=== PATIENT | female | born 1960 | race American Indian/Alaskan Native ===

== ENCOUNTER 2016-12-31 08:37 | Outpatient (CLI) | payer MEDICAID ==
--- NOTE | 2016-12-31 09:21 | XRay Report ---
LEFT HIP, 2 views: History: Left hip pain. The bony architecture is intact without evidence of fracture or dislocation. No significant soft tissue abnormality is seen. IMPRESSION: Normal left hip.
== END 2016-12-31 08:38 | disposition home or self-care (01) ==
LOC: XRAY 08:37
DX: M25.552 Pain in left hip (principal); M51.16 Intervertebral disc disorders with radiculopathy, lumbar region

== ENCOUNTER 2017-02-23 13:35 | Emergency (ER) | payer MEDICAID ==
[2017-02-23] MEDS: PERCOCET 5/325 PO ONE (16:57)
[2017-02-23] MEDS: TORADOL IM ONE (16:57)
[2017-02-23 17:03] LABS: Eosinophils % (Auto) 3.6 % (0.0-4.3); Hematocrit 43.3 % (30.3-42.9); Hemoglobin 14.1 gm/dl (10.1-14.3); Mean Corpuscular HGB Conc 33 % (30-34); Mean Corpuscular Hemoglobin 31 pg (28-32); Mean Corpuscular Volume 95 fl (79-97); Platelet Count 281 K/mm3 (140-440); Red Blood Count 4.58 M/mm3 (3.65-5.03); Red Cell Distribution Width 14.7 % (13.2-15.2); White Blood Count 7.8 K/mm3 (4.5-11.0)
[2017-02-23] MEDS: CALAN SR PO ONE (17:07)
--- NOTE | 2017-02-23 17:33 | Emergency Department Report ---
ED Lower Extremity HPI - General Chief Complaint: Extremity Injury, Lower Stated Complaint: RT KNEE AND RT FOOT Time Seen by Provider: 02/23/17 15:50 Source: patient Mode of arrival: Wheelchair Limitations: No Limitations - History of Present Illness Initial Comments: 56-year-old female with a past medical history of CVA, diabetes, hypertension, hyperlipidemia, back surgery, right knee and bilateral foot surgery presents to the hospital complains of pain and swelling to right leg after fall. She fell 4 days ago. She states that she has chronic problems of her right knee and on occasionally gives out on her period 4 days ago her leg gave out causing her to fall. She has had right knee and right foot pain since with some worsening swelling. Patient also presents with elevated blood pressure and states she has been compliant with her medications. She denies headache, chest pain, shortness of breath. - Related Data Home Medications Medication Instructions Recorded Confirmed Last Taken Gemfibrozil [Lopid] 600 mg PO DAILY 06/26/13 06/26/13 06/26/13 Metoprolol [Lopressor TAB] 100 mg PO BID 06/26/13 06/26/13 06/26/13 Verapamil HCl [Verapamil ER] 240 mg PO BID 06/26/13 06/26/13 06/26/13 cloNIDine [Catapres] 0.1 mg PO TID 06/26/13 06/26/13 06/26/13 Previous Rx's Medication Instructions Recorded Last Taken Type Cyclobenzaprine [Flexeril 10 MG 10 mg PO TID #12 tab 06/26/13 Unknown Rx TAB] Hydrocodone Bit/Acetaminophen 1 each PO Q6H PRN #12 tablet 06/26/13 Unknown Rx [Lortab 5-500 Tablet] Ondansetron [Zofran] 4 mg PO Q6HR PRN #20 tablet 12/23/14 Unknown Rx Acetaminophen/Codeine [Tylenol #3] 1 tab PO Q6H PRN #20 tab 03/06/15 Unknown Rx Cyclobenzaprine HCl [Flexeril 5mg] 5 mg PO TID #30 tablet 03/06/15 Unknown Rx Allergies Allergy/AdvReac Type Severity Reaction Status Date / Time KAROLINA Inhibitors Allergy Angioedema Verified 06/26/13 15:24 Sulfa (Sulfonamide Allergy Hives Verified 06/26/13 15:24 Antibiotics) ED Review of Systems ROS: Stated complaint: RT KNEE AND RT FOOT Other details as noted in HPI Comment: All other systems reviewed and negative Other: Constitutional: No fevers chills Eyes: No eye pain visual changes ENT: No ear pain or throat pain Neck: Denies pain Respiratory: Denies cough wheezing shortness of breath Cardiovascular: Denies chest pain, palpitations, syncope GI: Denies abdominal pain, nausea, vomiting, diarrhea : Denies dysuria Musculoskeletal: As per HPI Skin: Denies rash, lesions, erythema Neurologic: Denies headache, numbness, weakness Psychiatric: Denies suicidal ideation, hallucinations ED Past Medical Hx - Past Medical History Previous Medical History?: Yes Hx Hypertension: Yes (1990) Hx CVA: Yes (1981) Hx Congestive Heart Failure: No Hx Diabetes: Yes Additional medical history: Hyperlipidemia - Surgical History Past Surgical History?: Yes Hx Cholecystectomy: Yes Additional Surgical History: back surgery, knee surgery, foot surgery, - Social History Smoking Status: Current Every Day Smoker Substance Use Type: Prescribed - Medications Home Medications: Home Medications Medication Instructions Recorded Confirmed Last Taken Type Cyclobenzaprine [Flexeril 10 MG 10 mg PO TID #12 tab 06/26/13 Unknown Rx TAB] Gemfibrozil [Lopid] 600 mg PO DAILY 06/26/13 06/26/13 06/26/13 History Hydrocodone Bit/Acetaminophen 1 each PO Q6H PRN #12 tablet 06/26/13 Unknown Rx [Lortab 5-500 Tablet] Metoprolol [Lopressor TAB] 100 mg PO BID 06/26/13 06/26/13 06/26/13 History Verapamil HCl [Verapamil ER] 240 mg PO BID 06/26/13 06/26/13 06/26/13 History cloNIDine [Catapres] 0.1 mg PO TID 06/26/13 06/26/13 06/26/13 History Ondansetron [Zofran] 4 mg PO Q6HR PRN #20 tablet 12/23/14 Unknown Rx Acetaminophen/Codeine [Tylenol #3] 1 tab PO Q6H PRN #20 tab 03/06/15 Unknown Rx Cyclobenzaprine HCl [Flexeril 5mg] 5 mg PO TID #30 tablet 03/06/15 Unknown Rx ED Physical Exam - General Limitations: No Limitations - Other Other exam information: General: No limitations, patient is alert in no acute distress Head exam: Atraumatic, normocephalic Eyes exam: Normal appearance ENT: Moist mucous membrane, normal oropharynx Neck exam: Normal inspection, full range of motion Respiratory exam: Clear to auscultation bilateral, no wheezes, rales, crackles Cardiovascular: Normal rate and rhythm, normal heart sounds Abdomen: Soft, nondistended, and nontender, with normal bowel sounds, no rebound, or guarding Extremity: Right knee and right foot edema. Mild knee effusion. Tenderness to dorsum of foot. No deformity. Full range of motion. No warmth or erythema. 2 + DP pulse. Previous surgical scars to her right knee, left foot and right foot noted Back: Normal Inspection, full range of motion, no tenderness Neurologic: Alert, oriented x3, cranial nerves intact, no motor or sensory deficit Psychiatric: normal affect, normal mood Skin: Warm, dry, intact ED Course Vital Signs 02/23/17 02/23/17 02/23/17 13:43 15:47 15:59 Temperature 98.5 F Pulse Rate 103 H Respiratory 20 Rate Blood Pressure 189/110 195/103 195/103 Blood Pressure [Right] O2 Sat by Pulse 97 99 Oximetry 02/23/17 02/23/17 02/23/17 16:00 16:11 16:14 Temperature 98.5 F Pulse Rate 95 H Respiratory 21 Rate Blood Pressure 195/103 204/115 Blood Pressure 204/115 [Right] O2 Sat by Pulse 99 97 98 Oximetry 02/23/17 02/23/17 02/23/17 16:20 17:07 17:25 Temperature Pulse Rate 99 H 96 H Respiratory 18 Rate Blood Pressure 204/115 198/110 174/84 Blood Pressure [Right] O2 Sat by Pulse 99 Oximetry 02/23/17 17:30 Temperature Pulse Rate Respiratory Rate Blood Pressure 189/90 Blood Pressure [Right] O2 Sat by Pulse Oximetry ED Lower Extremity MDM - Lab Data Result diagrams: 02/23/17 14:17 02/23/17 17:45 Lab Results 02/23/17 02/23/17 02/23/17 Range/Units 14:17 14:17 17:45 WBC 7.8 (4.5-11.0) K/mm3 RBC 4.58 (3.65-5.03) M/mm3 Hgb 14.1 (10.1-14.3) gm/dl Hct 43.3 H (30.3-42.9) % MCV 95 (79-97) fl MCH 31 (28-32) pg MCHC 33 (30-34) % RDW 14.7 (13.2-15.2) % Plt Count 281 (140-440) K/mm3 Lymph % (Auto) 48.2 H (13.4-35.0) % [place] % (Auto) 6.3 (0.0-7.3) % Eos % (Auto) 3.6 (0.0-4.3) % Baso % (Auto) 1.0 (0.0-1.8) % Lymph # 3.8 (1.2-5.4) K/mm3 [place] # 0.5 (0.0-0.8) K/mm3 Eos # 0.3 (0.0-0.4) K/mm3 Baso # 0.1 (0.0-0.1) K/mm3 Seg Neutrophils % 40.9 (40.0-70.0) % Seg Neutrophils # 3.2 (1.8-7.7) K/mm3 Sodium TNR 144 Potassium TNR 3.7 Chloride TNR 106.1 Carbon Dioxide TNR 27 Anion Gap TNR 15 BUN TNR 17 Creatinine TNR 0.8 Estimated GFR TNR > 60 BUN/Creatinine Ratio TNR 21.25 Glucose TNR 109 H Calcium TNR 8.5 Total Bilirubin TNR AST TNR ALT TNR Alkaline Phosphatase TNR Total Protein TNR Albumin TNR Albumin/Globulin Ratio TNR - Radiology Data Radiology results: image reviewed Right knee x-ray: Significant arthritis, no acute fracture, possible effusion Right foot x-ray: Previous surgery pins noted. No acute fracture Plan with a right DVT exam report: No DVT. Soft tissue changes noted at the knee probable effusion - Medical Decision Making Patient's blood work required redraw secondary to hemolysis. Repeat CBC and BP does show any acute abnormality. BP trending down with patient's afternoon dose of verapamil. DVT study was negative. X-rays do not reveal fracture. Patient be discharged home with orthopedic follow-up. She has artery prescribed Percocet 10 mg for pain at home - Differential Diagnosis DVT, fracture, contusion, sprain, hypertensive emergency Critical Care Time: No Critical care attestation.: If time is entered above; I have spent that time in minutes in the direct care of this critically ill patient, excluding procedure time. ED Disposition Clinical Impression: Knee effusion, right, Contusion of right foot, Uncontrolled hypertension, Arthritis of knee, right Strain of right knee Qualifiers: Encounter type: initial encounter Qualified Code(s): S86.911A - Strain of unspecified muscle(s) and tendon(s) at lower leg level, right leg, initial encounter Disposition: TO HOME OR SELFCARE Is pt being admited?: No Condition: Stable Instructions: Hypertension (ED), Knee Effusion (ED), Osteoarthritis (ED), Foot Contusion (ED) Additional Instructions: Continue your current pain medication as needed. Continue blood pressure medication. Use a cane to help with ambulation as discussed and if you are unable to use a cane may use a walker until symptoms improve. Keep the leg elevated. Return if symptoms worsen. Referrals: EFREN NICHOLE DO [Primary Care Provider] - 3-5 Days Time of Disposition: 18:55
[2017-02-23 17:37] LABS: Anion Gap TNR mmol/L; Blood Urea Nitrogen TNR mg/dL (7-17); Carbon Dioxide TNR mmol/L (22-30); Chloride TNR mmol/L (98-107); Potassium TNR mmol/L (3.6-5.0); Sodium TNR mmol/L (137-145)
[2017-02-23 17:38] LABS: Alanine Aminotransferase TNR units/L (7-56); BUN/Creatinine Ratio TNR; Bilirubin,Total TNR mg/dL (0.1-1.2); Calcium TNR mg/dL (8.4-10.2); Glucose TNR mg/dL (65-100)
[2017-02-23 17:39] LABS: Albumin TNR g/dL (3.9-5); Albumin/Globulin Ratio TNR %; Alkaline Phosphatase TNR units/L (35-129); Total Protein TNR g/dL (6.3-8.2)
[2017-02-23 18:13] LABS: Anion Gap 15 mmol/L; BUN/Creatinine Ratio 21.25; Blood Urea Nitrogen 17 mg/dL (7-17); Calcium 8.5 mg/dL (8.4-10.2); Carbon Dioxide 27 mmol/L (22-30); Chloride 106.1 mmol/L (98-107); Glucose 109 mg/dL (65-100); Potassium 3.7 mmol/L (3.6-5.0); Sodium 144 mmol/L (137-145)
[2017-02-23 19:22] VITALS: BP 150/68
--- NOTE | 2017-02-24 07:29 | XRay Report ---
RIGHT FOOT, 3 views: History: Right foot pain after fall. No comparison. A surgical screw transverses the proximal phalanx of the great toe. A surgical pin transverses the third metatarsal neck. Please correlate with the patient's surgical history. There is no evidence for acute fracture, malalignment or erosive joint pathology. There is moderate joint space narrowing at the fifth metatarsophalangeal joint which appears osteoarthritic or posttraumatic in nature. There is mild soft tissue swelling of the distal foot. IMPRESSION: Soft tissue swelling. Chronic findings as described. No acute bony injury is appreciated.
--- NOTE | 2017-02-24 07:30 | XRay Report ---
RIGHT KNEE, 3 views: History: Right knee pain after fall Normal bone mineralization. Moderate tricompartmental osteoarthritic changes are identified. A moderate to large joint effusion is identified on the lateral image. No fracture or bony lesion is appreciated. IMPRESSION: Degenerative changes. Joint effusion. No acute injury is appreciated.
--- NOTE | 2017-02-24 07:53 | Vascular Lab Report ---
Right Lower Extremity Venous Duplex Study: Reason for Exam: Pain of the right lower extremity. Comments on the Right: All veins visualized are freely compressible without evidence of internal echogenicity. Flow is spontaneous and phasic throughout. No evidence of acute or chronic thrombus is seen in any of the vessels visualized. Soft tissue changes at the knee is consistent with knee effusion. Comments on the Left: A limited duplex study was done of the proximal veins of the left lower extremity. All veins visualized are freely compressible without evidence of internal echogenicity. Flow is spontaneous and phasic throughout. No evidence of acute or chronic thrombus is seen in any of the vessels visualized. Impression: No evidence of acute or chronic deep venous thrombosis in the right lower extremity.
== END 2017-02-23 19:42 | disposition home or self-care (01) ==
LOC: ED 13:35
DX: S86.911A Strain of unspecified muscle(s) and tendon(s) at lower leg level, right leg, initial encounter (principal); M25.461 Effusion, right knee; S90.31XA Contusion of right foot, initial encounter; I10 Essential (primary) hypertension; M13.861 Other specified arthritis, right knee; W18.30XA Fall on same level, unspecified, initial encounter; Y93.9 Activity, unspecified; Y92.9 Unspecified place or not applicable; Y99.9 Unspecified external cause status
CPT/HCPCS: 36415; 73562; 73630; 80048; 80053; 85025; 93971; 96372; 99284; J1885

== ENCOUNTER 2017-06-17 09:13 | Outpatient (CLI) | payer MEDICAID ==
--- NOTE | 2017-06-17 13:22 | Magnetic Resonance Report ---
MRI of the cervical spine. History: Cervical radiculopathy. Procedure: Sagittal T1-weighted, T2-weighted, inversion recovery images, and axial T2 weighted and proton density images were used in this study. Findings: Motion artifact degrades multiple sequences on this study. The C2-3 level is unremarkable. At C3-4, there is a mild central disc protrusion with mild effacement of anterior subarachnoid space. There is no neuroforaminal involvement or cord compression. C4-5 through C7-T1 levels are unremarkable. The cervical cord is normal in size and contour. The cervicomedullary junction is normal. There no significant bony abnormalities. Impression: Mild central disc bulge at C3-4 with mild effacement of the anterior thecal sac.
--- NOTE | 2017-06-17 13:29 | Magnetic Resonance Report ---
MRI of the lumbar spine without contrast. History: Lumbosacral radiculopathy. Procedure: Sagittal T1-weighted, T2-weighted, inversion recovery images, and axial T1 and T2-weighted images were used in the study. Findings: The L1-2 and L2-3 levels are unremarkable. At L3-4, the disc appears normal. There is facet joint DJD and hypertrophy especially on the left side with mild effacement of the posterolateral aspect of the thecal sac. There is no spinal stenosis. At L4-5 there is minimal disc space narrowing, but no other significant pathology. The L5-S1 level is unremarkable. There no significant bony abnormalities. The conus is normal. Impression: Facet joint DJD at L3-4 especially on the left with mild effacement of the thecal sac as described. There are no other significant findings.
== END 2017-06-17 09:14 | disposition home or self-care (01) ==
LOC: MRI 09:13
PROVIDERS: ATTEND Anesthesiology
DX: M51.16 Intervertebral disc disorders with radiculopathy, lumbar region (principal); M50.11 Cervical disc disorder with radiculopathy, high cervical region; M47.26 Other spondylosis with radiculopathy, lumbar region
CPT/HCPCS: 72141; 72148

== ENCOUNTER 2017-07-10 09:25 | Outpatient (CLI) | payer MEDICAID ==
--- NOTE | 2017-07-10 10:29 | XRay Report ---
Chest 2 views: Compared to 04/14/15. History: Cough. Findings: Normal cardiomediastinal silhouette. Trachea is midline. No consolidation, pneumothorax or pleural effusion. Impression: No definite acute cardiopulmonary findings.
== END 2017-07-10 09:26 | disposition home or self-care (01) ==
LOC: XRAY 09:25
PROVIDERS: ATTEND Internal Medicine Hematology & Oncology
DX: R05 Cough (principal)
CPT/HCPCS: 71020

== ENCOUNTER 2018-01-30 12:42 | Outpatient (CLI) | payer MEDICAID ==
[2018-01-30 14:01] LABS: Blood Urea Nitrogen 13 mg/dL (7-17)
--- NOTE | 2018-01-30 14:16 | XRay Report ---
Bilateral hips: History: Pain in hips. Findings: There is mild arthritic changes noted in the superior-lateral aspect of right and left hip joint. No fracture or dislocation. No significant soft tissue calcification. Impression: Degenerative changes right and left hip.
--- NOTE | 2018-01-30 15:51 | Cat Scan Report ---
FINAL REPORT PROCEDURE: CT CHEST WO/W CON TECHNIQUE: Computerized axial tomography of the chest was performed before and after the IV injection of iodinated nonionic contrast. HISTORY: DYSPHONIA COMPARISON: No prior studies are available for comparison. TECHNICAL QUALITY: Satisfactory. FINDINGS: Pulmonary outflow tract, right and left main pulmonary arteries: No abnormality is seen. Pericardium: No evidence of pericardial effusion. Thoracic aorta: Atherosclerotic changes are visualized, no evidence of aneurysmal dilatation or dissection. Coronary arteries: Are partially calcified indicating atherosclerotic disease. Mediastinum and hilar regions: Nonspecific subcentimeter lymph nodes are visualized. No pathologically enlarged lymph nodes or masses are identified. Nonspecific lymph node measuring 2.1 x 0.9 centimeters seen lateral to the pulmonary outflow tract. Lung Forrest: Mild peripheral emphysematous changes seen in the upper lung forrest. Nonspecific ground-glass densities are scattered throughout both lungs. No focal dense consolidations masses or effusions are seen. Upper abdomen: Gallbladder surgically absent. No acute or focal abnormalities are seen. Other: No acute bony abnormalities are identified. IMPRESSION: Nonspecific ground-glass density seen scattered in both lungs. No dense consolidations masses or effusions are seen. There is mild peripheral emphysematous changes seen in the apices of both lungs. Nonspecific mediastinal and hilar lymph nodes visualized. These do not appear to be pathologically enlarged. Atherosclerosis coronary arteries. Prior cholecystectomy.
--- NOTE | 2018-01-30 16:22 | Cat Scan Report ---
FINAL REPORT EXAM: CT NECK WO/W CON HISTORY: DYSPHONIA TECHNIQUE: CT examination of the neck before and after IV contrast PRIORS: Chest CT 01/30/2018 FINDINGS: Visualized brain: No focal abnormality Visualized lung apices: Bilateral subpleural pneumatoceles. Scattered nonspecific ground-glass opacities in each upper lobe. Cervical spine: Multilevel degenerative change Paranasal sinuses: Clear Torus tubaris: No focal abnormality Fossa of [place]: No focal abnormality Parapharyngeal fat planes: No focal abnormality Parotid and submandibular glands: No focal abnormality Epiglottis: No focal abnormality Vallecula: No focal abnormality Piriform sinus: No focal abnormality Vocal cord region: No focal abnormality Thyroid: No focal abnormality Vessels: Atherosclerotic calcification in the carotid bifurcation bilaterally. Lymph nodes: No focal abnormality or gross enlargement Abnormal fluid collection to suggest abscess: None Abnormal IV contrast enhancement: None IMPRESSION: No CT evidence of acute neck pathology or mass Bilateral lung apex ground-glass opacities may be scarring. Differential includes edema and/or pneumonitis Atherosclerotic calcification in the carotid bifurcation bilaterally
--- NOTE | 2018-01-30 16:24 | Mammography Report ---
BILATERAL DIGITAL SCREENING MAMMOGRAM with CAD: 01/30/18 12:42:00 CLINICAL: Routine screening. COMPARISON:07/23/16 and 02/10/15 FINDINGS: The breasts are mostly fatty with a few bilateral scattered fibroglandular densities.Bilateral parenchymal asymmetries require additional imaging. No architectural distortion or suspicious calcifications. IMPRESSION: Bilateral asymmetries requiring further workup. BI-RADS CATEGORY: 0 -- Additional Imaging Evaluation Required RECOMMENDATION: Recalled for bilateral spot compression views and bilateral breast ultrasound if needed. ACR BI-RADS MAMMOGRAPHIC CODES: 0 = Needs additional imaging evaluation; 1 = Negative; 2 = Benign; 3 = Probably benign; 4 = Suspicious; 5 = Malignant; 6 = Known biopsy-proven malignancy COMMENT: 1. Dense breast tissue, i.e., adenosis, fibrocystic changes, etc., may obscure an underlying neoplasm. 2. Approximately 10% of cancers are not detected with mammography. 3. A negative mammography report should not delay biopsy if a clinically suspicious mass is present. COMMENT: Patient follow-up letters are generated via our [employer] application.
== END 2018-01-30 12:43 | disposition home or self-care (01) ==
LOC: CT 12:42
PROVIDERS: ATTEND Internal Medicine Hematology & Oncology
DX: Z12.31 Encounter for screening mammogram for malignant neoplasm of breast (principal); M16.0 Bilateral primary osteoarthritis of hip; J98.4 Other disorders of lung; I25.10 Atherosclerotic heart disease of native coronary artery without angina pectoris; I70.0 Atherosclerosis of aorta; M47.812 Spondylosis without myelopathy or radiculopathy, cervical region; Z90.49 Acquired absence of other specified parts of digestive tract; R49.0 Dysphonia; F17.210 Nicotine dependence, cigarettes, uncomplicated
CPT/HCPCS: 36415; 70492; 71270; 73521; 77067; 82565; 84520; Q9967

== ENCOUNTER 2018-03-19 08:46 | Outpatient (CLI) | payer MEDICAID ==
--- NOTE | 2018-03-19 09:40 | Mammography Report ---
BILATERAL DIGITAL DIAGNOSTIC MAMMOGRAM : 03/19/18 08:46:00 CLINICAL: Recalled for bilateral asymmetries. COMPARISON:01/30/18 screening FINDINGS: Bilateral additional mammographic views were performed and are negative. IMPRESSION: No mammographic evidence of malignancy. BI-RADS CATEGORY: 1 -- Negative RECOMMENDATION: Routine mammographic screening in one year. ACR BI-RADS MAMMOGRAPHIC CODES: 0 = Needs additional imaging evaluation; 1 = Negative; 2 = Benign; 3 = Probably benign; 4 = Suspicious; 5 = Malignant; 6 = Known biopsy-proven malignancy COMMENT: 1. Dense breast tissue, i.e., adenosis, fibrocystic changes, etc., may obscure an underlying neoplasm. 2. Approximately 10% of cancers are not detected with mammography. 3. A negative mammography report should not delay biopsy if a clinically suspicious mass is present. COMMENT: Patient follow-up letters are generated via our [employer] application.
== END 2018-03-19 08:47 | disposition home or self-care (01) ==
LOC: MAMMO 08:46
PROVIDERS: ATTEND Internal Medicine Hematology & Oncology
DX: N64.89 Other specified disorders of breast (principal); R92.2 Inconclusive mammogram; E13.9 Other specified diabetes mellitus without complications; I10 Essential (primary) hypertension; E78.5 Hyperlipidemia, unspecified; Z90.49 Acquired absence of other specified parts of digestive tract; Z90.710 Acquired absence of both cervix and uterus
CPT/HCPCS: 77066

== ENCOUNTER 2018-03-31 11:36 | Outpatient (CLI) | payer MEDICAID ==
--- NOTE | 2018-03-31 15:35 | Cat Scan Report ---
CT ABDOMEN PELVIS WITHOUT CONTRAST: HISTORY: Abdominal pain, edema. COMPARISON: none. TECHNIQUE: Helical CT in 1.25mm intervals without IV contrast. Sagittal and coronal reconstructions. FINDINGS: Lung bases: Adequately aerated. Normal heart size. Moderate coronary artery calcifications are noted. Liver: Normal. Biliary system: Cholecystectomy. No biliary dilatation. Pancreas: Normal. Spleen: Normal. Kidneys/ureters/bladder: Normal. Adrenal glands: Normal. Aorta: Moderate diffuse calcifications are identified. No AAA. There are dense calcifications near the aortic bifurcation. Common iliac artery stenosis is suspected measuring up to 70-80%. Intestines: There is moderate fecal retention. No evidence for mass, obstruction or focal inflammation. Appendix: Normal. Pelvic viscera: Hysterectomy. No adnexal cyst or mass. Ascites: None. Adenopathy: None. Musculoskeletal: No suspicious bony lesion or fracture. Mild lumbar spondylosis. IMPRESSION: No acute processes identified in the abdomen or pelvis. Mild constipation. Moderate to severe atherosclerotic disease in the aorta and iliac systems as described. Surgical changes as noted above.
== END 2018-03-31 11:37 | disposition home or self-care (01) ==
LOC: CT 11:36
PROVIDERS: ATTEND Internal Medicine Hematology & Oncology
DX: K59.00 Constipation, unspecified (principal); I70.0 Atherosclerosis of aorta; M48.36 Traumatic spondylopathy, lumbar region; I10 Essential (primary) hypertension; E78.5 Hyperlipidemia, unspecified; E13.9 Other specified diabetes mellitus without complications; Z90.710 Acquired absence of both cervix and uterus
CPT/HCPCS: 74176

== ENCOUNTER 2019-08-22 17:35 | Emergency (ER) | payer MEDICAID ==
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
[2019-08-22 18:43] VITALS: BP 137/75
[2019-08-22 19:17] LABS: Basophils # (Auto) 0.1 K/mm3 (0.0-0.1); Basophils % (Auto) 0.9 % (0.0-1.8); Eosinophils # (Auto) 0.3 K/mm3 (0.0-0.4); Eosinophils % (Auto) 2.4 % (0.0-4.3); Hematocrit 36.3 % (30.3-42.9); Hemoglobin 12.1 gm/dl (10.1-14.3); Lymphocytes # (Auto) 3.6 K/mm3 (1.2-5.4); Mean Corpuscular HGB Conc 34 % (30-34); Mean Corpuscular Volume 94 fl (79-97); Monocytes # (Auto) 0.7 K/mm3 (0.0-0.8); Monocytes % (Auto) 6.8 % (0.0-7.3); Platelet Count 292 K/mm3 (140-440); Red Blood Count 3.86 M/mm3 (3.65-5.03); Red Cell Distribution Width 15.2 % (13.2-15.2)
[2019-08-22 19:35] LABS: BUN/Creatinine Ratio 17; Blood Urea Nitrogen 15 mg/dL (7-17); Calcium 8.7 mg/dL (8.4-10.2); Hemolysis Index 29
[2019-08-22] MEDS ORDERED: HYDROcodone/ACETAMINOPHEN 5-325 MG TAB PO ONE (20:48)
[2019-08-22] MEDS ORDERED: TETANUS,DIPH,PERTUSS(ACELL) VACCINE 0.5 ML SYRINGE IM ONE (20:48)
[2019-08-22] MEDS ORDERED: BACITRACIN/POLYMYXIN B OINT 28.35 GM TP ONE (20:48)
--- NOTE | 2019-08-22 20:56 | Emergency Department Report ---
Burn HPI - History Stated Complaint: OPEN WOUND/LT FOOT/BURN SENSATION Chief Complaint: Burn/Smoke Inhalation Time Seen by Provider: 08/22/19 18:41 Duration of Burn: 3 weeks Burn Location: Other (left foot ) Burn Etiology: Accidental Pain: Moderate Tetanus Status: Not up to Date Symptoms:: Yes Fever, Yes Able to Tolerate Fluids, No Blistering, No Malaise, No Vomiting - Home Meds and Allergies Home Medications: Home Medications Medication Instructions Recorded Confirmed Last Taken Gemfibrozil [Lopid] 600 mg PO DAILY 06/26/13 06/26/13 06/26/13 Metoprolol [Lopressor TAB] 100 mg PO BID 06/26/13 06/26/13 06/26/13 Verapamil HCl [Verapamil ER] 240 mg PO BID 06/26/13 06/26/13 06/26/13 cloNIDine [Catapres] 0.1 mg PO TID 06/26/13 06/26/13 06/26/13 Previous Rx's Medication Instructions Recorded Last Taken Type Cyclobenzaprine [Flexeril 10 MG 10 mg PO TID #12 tab 06/26/13 Unknown Rx TAB] Hydrocodone Bit/Acetaminophen 1 each PO Q6H PRN #12 tablet 06/26/13 Unknown Rx [Lortab 5-500 Tablet] Ondansetron [Zofran] 4 mg PO Q6HR PRN #20 tablet 12/23/14 Unknown Rx Acetaminophen/Codeine [Tylenol #3] 1 tab PO Q6H PRN #20 tab 03/06/15 Unknown Rx Cyclobenzaprine HCl [Flexeril 5mg] 5 mg PO TID #30 tablet 03/06/15 Unknown Rx Azithromycin [Zithromax Z-TAYLOR] 250 mg PO DAILY #6 tab 06/05/19 Unknown Rx Naproxen [Naprosyn TAB] 500 mg PO BID PRN #30 tablet 06/05/19 Unknown Rx Clindamycin [Clindamycin CAP] 300 mg PO Q6H 10 Days #40 capsule 08/22/19 Unknown Rx Mupirocin [Bactroban 2% OINT] 1 applic TP BID #1 tube 08/22/19 Unknown Rx traMADoL [Ultram] 50 mg PO Q6HR PRN #12 tablet 08/22/19 Unknown Rx Allergies/Adverse Reactions: Allergies Allergy/AdvReac Type Severity Reaction Status Date / Time KAROLINA Inhibitors Allergy Angioedema Verified 06/26/13 15:24 Sulfa (Sulfonamide Allergy Hives Verified 06/26/13 15:24 Antibiotics) ED Review of Systems ROS: Stated complaint: OPEN WOUND/LT FOOT/BURN SENSATION Other details as noted in HPI Constitutional: denies: chills, fever Eyes: denies: eye pain, eye discharge, vision change ENT: denies: ear pain, throat pain Respiratory: denies: cough, shortness of breath, wheezing Cardiovascular: denies: chest pain, palpitations Endocrine: no symptoms reported Gastrointestinal: denies: abdominal pain, nausea, vomiting, diarrhea Genitourinary: denies: urgency, dysuria, discharge Musculoskeletal: denies: back pain, joint swelling, arthralgia Skin: other (burn left foot 2nd degree, ). denies: rash, lesions Neurological: denies: headache, weakness, paresthesias Psychiatric: denies: anxiety, depression Hematological/Lymphatic: denies: easy bleeding, easy bruising ED Past Medical Hx - Past Medical History Previous Medical History?: Yes Hx Hypertension: Yes (1990) Hx CVA: Yes (1981) Hx Congestive Heart Failure: No Hx Diabetes: Yes Additional medical history: Hyperlipidemia - Surgical History Past Surgical History?: Yes Hx Cholecystectomy: Yes Additional Surgical History: back surgery, knee surgery, foot surgery, - Social History Smoking Status: Current Every Day Smoker Substance Use Type: None - Medications Home Medications: Home Medications Medication Instructions Recorded Confirmed Last Taken Type Cyclobenzaprine [Flexeril 10 MG 10 mg PO TID #12 tab 06/26/13 Unknown Rx TAB] Gemfibrozil [Lopid] 600 mg PO DAILY 06/26/13 06/26/13 06/26/13 History Hydrocodone Bit/Acetaminophen 1 each PO Q6H PRN #12 tablet 06/26/13 Unknown Rx [Lortab 5-500 Tablet] Metoprolol [Lopressor TAB] 100 mg PO BID 06/26/13 06/26/13 06/26/13 History Verapamil HCl [Verapamil ER] 240 mg PO BID 06/26/13 06/26/13 06/26/13 History cloNIDine [Catapres] 0.1 mg PO TID 06/26/13 06/26/13 06/26/13 History Ondansetron [Zofran] 4 mg PO Q6HR PRN #20 tablet 12/23/14 Unknown Rx Acetaminophen/Codeine [Tylenol #3] 1 tab PO Q6H PRN #20 tab 03/06/15 Unknown Rx Cyclobenzaprine HCl [Flexeril 5mg] 5 mg PO TID #30 tablet 03/06/15 Unknown Rx Azithromycin [Zithromax Z-TAYLOR] 250 mg PO DAILY #6 tab 06/05/19 Unknown Rx Naproxen [Naprosyn TAB] 500 mg PO BID PRN #30 tablet 06/05/19 Unknown Rx Clindamycin [Clindamycin CAP] 300 mg PO Q6H 10 Days #40 capsule 08/22/19 Unknown Rx Mupirocin [Bactroban 2% OINT] 1 applic TP BID #1 tube 08/22/19 Unknown Rx traMADoL [Ultram] 50 mg PO Q6HR PRN #12 tablet 08/22/19 Unknown Rx Exam - Exam General: Vital signs noted. No distress. Alert and acting appropriately. HEENT: Yes Moist Mucous Membranes, No Conjuctival Injection, No Corneal Edema Skin: Yes Erythroderma, Yes Tenderness, No Blistering, No Edema Exam: Yes Normal Heart Sounds, No Respiratory Distress, No Sensory Deficits, No Musculoskeletal Pain Exam: mild erythema pain , mild exudate left foot 2x5 cm , surface cellulitis, distal pulses intact, rom intact and unrestricted, mild swelling non pitting. ED Course Vital Signs 08/22/19 18:37 Temperature 98.7 F Pulse Rate 75 Respiratory 22 Rate Blood Pressure 137/75 O2 Sat by Pulse 95 Oximetry ED Medical Decision Making - Lab Data Result diagrams: 08/22/19 18:57 08/22/19 18:57 Labs 08/22/19 08/22/19 08/22/19 18:50 18:57 18:57 WBC 11.0 RBC 3.86 Hgb 12.1 Hct 36.3 MCV 94 MCH 31 MCHC 34 RDW 15.2 Plt Count 292 Lymph % (Auto) 33.0 [place] % (Auto) 6.8 Eos % (Auto) 2.4 Baso % (Auto) 0.9 Lymph # 3.6 [place] # 0.7 Eos # 0.3 Baso # 0.1 Seg Neutrophils % 56.9 Seg Neutrophils # 6.3 Sodium 137 Potassium 4.2 Chloride 102.3 Carbon Dioxide 19 L Anion Gap 20 BUN 15 Creatinine 0.9 Estimated GFR > 60 BUN/Creatinine Ratio 17 Glucose 92 POC Glucose 93 Calcium 8.7 - Medical Decision Making this is a 3 week old superficial healing 2nd degree burn to left dorsal foot, will with moderate cellitis, pain , no weeping ,no bleeding, sensation intact, distal pulse intact, crowning inspector <3 sec, pt is ambulatory with steady gait plan: clindamycin, follow up with [facility] outpatient, in 2 days, bacitracin oint dressing changes daily , pt verbalized agreement and understanding of dis charge plan. Critical care attestation.: If time is entered above; I have spent that time in minutes in the direct care of this critically ill patient, excluding procedure time. ED Disposition Clinical Impression: Burn Cellulitis Qualifiers: Site of cellulitis: extremity Site of cellulitis of extremity: lower extremity Laterality: left Qualified Code(s): L03.116 - Cellulitis of left lower limb Disposition: - TO HOME OR SELFCARE Is pt being admited?: No Does the pt Need Aspirin: No Condition: Stable Instructions: Cellulitis (ED), Superficial Burn (ED) Additional Instructions: follow up with [facility] in 2-3 days , at [facility], talke mediations as prescribed. , clindamycin, Prescriptions: Mupirocin [Bactroban 2% OINT] 1 applic TP BID #1 tube Clindamycin [Clindamycin CAP] 300 mg PO Q6H 10 Days #40 capsule traMADoL [Ultram] 50 mg PO Q6HR PRN #12 tablet PRN Reason: Pain Referrals: [facility] [Outside] - 3-5 Days Forms: Work/School Release Form(ED) Time of Disposition: 21:40
[2019-08-22] MEDS ORDERED: NEOMY 3.5 MG/BACIT 400 UNITS/POLY B 5000 UNITS/GM OINT PACKET TP ONE (22:02)
[2019-08-22] MEDS ORDERED: HYDROGEN PEROXIDE 118 ML SOLUTION ONE (22:03)
== END 2019-08-22 22:52 | disposition home or self-care (01) ==
LOC: ED 17:35
DX: T25.222A Burn of second degree of left foot, initial encounter (principal); T79.9XXA Unspecified early complication of trauma, initial encounter; L03.116 Cellulitis of left lower limb; I10 Essential (primary) hypertension; E11.9 Type 2 diabetes mellitus without complications; E78.5 Hyperlipidemia, unspecified; F17.200 Nicotine dependence, unspecified, uncomplicated; Z90.49 Acquired absence of other specified parts of digestive tract; Z79.899 Other long term (current) drug therapy; Z88.8 Allergy status to other drugs, medicaments and biological substances; Z88.2 Allergy status to sulfonamides; Z86.73 Personal history of transient ischemic attack (TIA), and cerebral infarction without residual deficits; Z98.890 Other specified postprocedural states; X19.XXXA Contact with other heat and hot substances, initial encounter; Y93.89 Activity, other specified; Y92.89 Other specified places as the place of occurrence of the external cause; Y99.8 Other external cause status
CPT/HCPCS: 36415; 80048; 82962; 85025; 90471; 90715; 96365; A6250

== ENCOUNTER 2019-08-25 12:59 | Outpatient (CLI) | payer MEDICAID ==
[2019-08-25] MEDS ORDERED: LIDOCAINE (4%) 40 MG/ML TOPICAL SOLN 50 ML BOTTLE TP ONE (13:36)
== END 2019-08-25 13:00 | disposition home or self-care (01) ==
LOC: WOUND 12:59
PROVIDERS: ATTEND Surgery
DX: T25.222A Burn of second degree of left foot, initial encounter (principal); T31.0 Burns involving less than 10% of body surface; L97.522 Non-pressure chronic ulcer of other part of left foot with fat layer exposed; I10 Essential (primary) hypertension; F17.210 Nicotine dependence, cigarettes, uncomplicated; Z90.710 Acquired absence of both cervix and uterus; Z90.49 Acquired absence of other specified parts of digestive tract; X08.8XXA Exposure to other specified smoke, fire and flames, initial encounter; Y93.89 Activity, other specified; Y92.89 Other specified places as the place of occurrence of the external cause; Y99.8 Other external cause status
CPT/HCPCS: 16020; G0463; 99214

== ENCOUNTER 2019-09-01 08:29 | Outpatient (CLI) | payer MEDICAID ==
[2019-09-01] MEDS ORDERED: LIDOCAINE (4%) 40 MG/ML TOPICAL SOLN 50 ML BOTTLE TP ONE (09:15)
== END 2019-09-01 08:30 | disposition home or self-care (01) ==
LOC: WOUND 08:29
PROVIDERS: ATTEND Surgery
DX: T25.222D Burn of second degree of left foot, subsequent encounter (principal); L97.522 Non-pressure chronic ulcer of other part of left foot with fat layer exposed; I10 Essential (primary) hypertension; F17.210 Nicotine dependence, cigarettes, uncomplicated; Z90.710 Acquired absence of both cervix and uterus; X08.8XXD Exposure to other specified smoke, fire and flames, subsequent encounter

== ENCOUNTER 2019-09-16 13:21 | Outpatient (CLI) | payer MEDICAID ==
[2019-09-16] MEDS ORDERED: LIDOCAINE (4%) 40 MG/ML TOPICAL SOLN 50 ML BOTTLE TP ONE (13:24)
== END 2019-09-16 13:22 | disposition home or self-care (01) ==
LOC: WOUND 13:21
PROVIDERS: ATTEND Surgery
DX: T25.222D Burn of second degree of left foot, subsequent encounter (principal); L97.522 Non-pressure chronic ulcer of other part of left foot with fat layer exposed; I10 Essential (primary) hypertension; F17.210 Nicotine dependence, cigarettes, uncomplicated; Z90.710 Acquired absence of both cervix and uterus; X08.8XXD Exposure to other specified smoke, fire and flames, subsequent encounter
CPT/HCPCS: 16020

== ENCOUNTER 2019-09-28 13:29 | Outpatient (CLI) | payer MEDICAID ==
[2019-09-28] MEDS ORDERED: LIDOCAINE (4%) 40 MG/ML TOPICAL SOLN 50 ML BOTTLE TP ONE (14:00)
== END 2019-09-28 13:30 | disposition home or self-care (01) ==
LOC: WOUND 13:29
PROVIDERS: ATTEND Surgery
DX: T25.222D Burn of second degree of left foot, subsequent encounter (principal); L97.522 Non-pressure chronic ulcer of other part of left foot with fat layer exposed; I10 Essential (primary) hypertension; F17.210 Nicotine dependence, cigarettes, uncomplicated; Z90.710 Acquired absence of both cervix and uterus; X08.8XXD Exposure to other specified smoke, fire and flames, subsequent encounter
CPT/HCPCS: 16020

== ENCOUNTER 2019-10-05 13:30 | Outpatient (CLI) | payer MEDICAID ==
[2019-10-05] MEDS ORDERED: LIDOCAINE (4%) 40 MG/ML TOPICAL SOLN 50 ML BOTTLE TP ONE (13:40)
== END 2019-10-05 13:31 | disposition home or self-care (01) ==
LOC: WOUND 13:30
PROVIDERS: ATTEND Surgery
DX: T25.222D Burn of second degree of left foot, subsequent encounter (principal); L97.522 Non-pressure chronic ulcer of other part of left foot with fat layer exposed; I10 Essential (primary) hypertension; F17.210 Nicotine dependence, cigarettes, uncomplicated; Z90.710 Acquired absence of both cervix and uterus; X08.8XXD Exposure to other specified smoke, fire and flames, subsequent encounter
CPT/HCPCS: 99213; G0463

== ENCOUNTER 2021-10-02 09:33 | Day surgery (SDC) | payer MEDICAID ==
[2021-10-02] MEDS ORDERED: SODIUM CHLORIDE 0.9% 500 ML 500 ML IV SCH (11:00)
[2021-10-02 11:28] LABS: Hematocrit 41.7 % (30.3-42.9); Hemoglobin 13.5 gm/dl (10.1-14.3); Mean Corpuscular HGB Conc 32 % (30-34); Mean Corpuscular Volume 95 fl (79-97); Platelet Count 327 K/mm3 (140-440); Red Blood Count 4.39 M/mm3 (3.65-5.03); Red Cell Distribution Width 15.1 % (13.2-15.2)
[2021-10-02 11:38] LABS: INR 0.8 (0.87-1.13)
[2021-10-02 11:39] LABS: Partial Thromboplastin Time 29.5 Sec. (24.2-36.6)
[2021-10-02 11:44] LABS: Blood Urea Nitrogen 11 mg/dL (7-17); Calcium 9.4 mg/dL (8.4-10.2); Hemolysis Index 11
[2021-10-02 11:51] LABS: BUN/Creatinine Ratio 18
[2021-10-02] MEDS ORDERED: HEPARIN/NS 5000 UNIT/500ML 1,000 ML IR ONE (12:22)
--- NOTE | 2021-10-02 12:24 | Short Stay Summary ---
Short Stay Documentation Date of service: 10/02/21 Narrative H&P: The patient is a 60-year-old female who presented with complaints of bilateral lower extremity claudication. She states this has been present for approximately 1 year and has worsened over the past year. She has tried topical analgesics that initially provided relief however the pain has progressed to the point that they are no longer effective. She recently had a CTA at an outside facility that demonstrated near occlusions of her bilateral iliac arteries. She has no additional complaints at this time. - History Past Medical History: anemia, arthritis, COPD, diabetes, GERD, heart failure, hypertension, hyperlipidemia, stroke, other (Anxiety disorder, depression) Past Surgical History: cholecystectomy, total knee replacement, Other (Back surgery, bilateral bunionectomy, hammertoe repair, right rotator cuff surgery) Social history: smoking (Former smoker) - Allergies and Medications Current Medications: Allergies KAROLINA Inhibitors Allergy (Verified 06/26/13 15:24) Angioedema Sulfa (Sulfonamide Antibiotics) Allergy (Verified 06/26/13 15:24) Hives Home Medications Medication Instructions Recorded Confirmed Last Taken Type Verapamil HCl [Verapamil ER] 240 mg PO BID 06/26/13 10/02/21 10/02/21 07:30 History 240 MG Oxycodone HCl/Acetaminophen 10 - 325 each PO QID 10/02/21 10/02/21 10/01/21 History [Oxycodone-Acetaminophen 10-325] 1 TAB Pantoprazole [Protonix] 40 mg PO QDAY 10/02/21 10/02/21 10/01/21 History 40 MG Simvastatin 40 mg PO DAILY 10/02/21 10/02/21 10/01/21 History 40 MG amLODIPine [Norvasc] 10 mg PO DAILY 10/02/21 10/02/21 10/02/21 07:30 History 10 MG Active Medications Sodium Chloride (Nacl 0.9% 500 Ml) 500 mls @ 50 mls/hr IV DIRECT KAYLEN - Physical exam General appearance: no acute distress Lungs: Normal air movement Breasts: deferred Gastrointestinal: normal Female Genitourinary: deferred Rectal Exam: deferred Extremities: abnormal (Nonpalpable pedal pulses bilaterally, diminished femoral pulses bilaterally) - Brief post op/procedure progress note Date of procedure: 10/02/21 Pre-op diagnosis: 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 Ultrasound Guided Access Right Common Femoral Artery 2. Ultrasound Guided Access Left Common Femoral Artery 3. Diagnostic Aortogram (No Previous Films For Comparison) 4. Bilateral Lower Extremity Angiogram (No Previous Films For Comparison) 5. Shockwave Lithotripsy of the Left Common Iliac Artery with a 6.5 x 80 Shockwave Balloon 6. Shockwave Lithotripsy of the Left External Iliac Artery with a 6.5 x 80 Shockwave Balloon 7. Shockwave Lithotripsy of the Right Common Iliac Artery with a 6.5 x 80 Shockwave Balloon 8. Angioplasty and Stent of Left Common Iliac Artery with an 8 x 59 mm Viabahn VBX Balloon Expandable Stent Graft 9. Angioplasty and Stent of Right Common Iliac Artery with an 8 x 59 mm Viabahn VBX Balloon Expandable Stent Graft 10. Angioplasty of Left External Iliac Artery with 7 x 80 IN.PACT Drug-Coated Balloon and 6 x 80 Drug-Coated Balloon 11. Angioplasty of Right External Iliac Artery with 7 x 80 IN.PACT Drug-Coated Balloon and 6 x 80 Drug-Coated Balloon 12. Closure of Right Femoral Arteriotomy with Perclose ProStyle Closure Device 13. Closure of Left Femoral Arteriotomy with Perclose ProStyle Closure Device 14. Radiologic Supervision with Interpretation 15. Monitored Moderate Sedation (Total Anesthesia Time: 157 Minutes) Anesthesia: local, other (Monitored Moderate Sedation) Surgeon: DILIP JAMES Estimated blood loss: minimal Pathology: none Condition: stable - Disposition Condition at discharge: Good Disposition: 01 HOME / SELF CARE / HOMELESS Short Stay Discharge Plan Activity: other (No strenuous activity for 24 hours) Wound: remove dressing (in 48 hours), other (After removing the dressing, okay to shower and wash the wound with soap and water but do not soak in water for 2 weeks.) Follow up with: DILIP JAMES MD [Staff Physician] - 14 Days Prescriptions: Aspirin EC [Halfprin EC] 81 mg PO QDAY #90 tablet. Clopidogrel [Plavix] 75 mg PO QDAY #90 tablet cilostazoL [Pletal] 100 mg PO BID #180 tablet
[2021-10-02] MEDS ORDERED: SODIUM CHLORIDE 0.9% 500 ML 500 ML ONE ×2 (12:36→15:02)
[2021-10-02] MEDS: MIDAZOLAM 2 MG/2 ML INJ ONE ×7 (12:43→15:16)
[2021-10-02] MEDS: LIDOCAINE (2%) 20 MG/1 ML VIAL 20 ML MDV INFILTRATI ONE ×3 (12:44→13:14)
[2021-10-02] MEDS: fentaNYL 100 MCG/2 ML INJ ONE ×4 (12:44→13:15)
[2021-10-02] MEDS ORDERED: diphenhydrAMINE 50 MG/ML VIAL ONE (13:04)
[2021-10-02] MEDS: HEPARIN 10,000 UNITS/10 ML VIAL ONE ×2 (13:38→14:26)
[2021-10-02] MEDS ORDERED: HEPARIN/NS 5000 UNIT/500ML 500 ML IR ONE ×2 (13:50→14:08)
[2021-10-02] MEDS ORDERED: fentaNYL 100 MCG/2 ML INJ ONE (14:21)
[2021-10-02] MEDS ORDERED: ONDANSETRON 4 MG/2 ML INJ ONE (15:01)
[2021-10-02] MEDS ORDERED: LIDOCAINE (2%) 20 MG/1 ML VIAL 20 ML MDV INFILTRATI ONE (15:11)
[2021-10-02] MEDS ORDERED: CLOPIDOGREL 300 MG TAB PO ONE (16:09)
--- NOTE | 2021-10-02 16:09 | Operative Report ---
Operative Report Operative Report: Date of Procedure: 10/02/2021 Pre-operative Diagnosis: Aortoiliac Occlusive Disease with Bilateral Lower Extre mity Claudication Post-operative Diagnosis: Same Procedure(s): 1. Ultrasound Guided Access Right Common Femoral Artery 2. Ultrasound Guided Access Left Common Femoral Artery 3. Diagnostic Aortogram (No Previous Films For Comparison) 4. Bilateral Lower Extremity Angiogram (No Previous Films For Comparison) 5. Lithotripsy Angioplasty of the Left Common Iliac Artery with a 6.5 x 80 Shockwave Lithotripsy Balloon 6. Lithotripsy Angioplasty of the Left External Iliac Artery with a 6.5 x 80 Shockwave Lithotripsy Balloon 7. Lithotripsy Angioplasty of the Right Common Iliac Artery with a 6.5 x 80 Shockwave Lithotripsy Balloon 8. Angioplasty and Stent of Left Common Iliac Artery with an 8 x 59 mm Viabahn VBX Balloon Expandable Stent Graft 9. Angioplasty and Stent of Right Common Iliac Artery with an 8 x 59 mm Viabahn VBX Balloon Expandable Stent Graft 10. Angioplasty of Left External Iliac Artery with 7 x 80 IN.PACT Drug-Coated Balloon and 6 x 80 Drug-Coated Balloon 11. Angioplasty of Right External Iliac Artery with 7 x 80 IN.PACT Drug-Coated Balloon and 6 x 80 Drug-Coated Balloon 12. Closure of Right Femoral Arteriotomy with Perclose ProStyle Closure Device 13. Closure of Left Femoral Arteriotomy with Perclose ProStyle Closure Device 14. Radiologic Supervision with Interpretation 15. Monitored Moderate Sedation (Total Anesthesia Time: 157 Minutes) Surgeon: Marvin Carvajal M.D. Teacher Lip Reading: None Anesthesia: Local/Monitored Moderate Sedation Total anesthesia time: 157 Minutes EBL: Minimal Counts: Correct Complications: None Condition: Stable Specimen: None Indication: The patient is a 60-year-old female with a history of bilateral lower extremity claudication involving her legs as well as her hips who had ultrasounds and CT scans, performed at an outside facility, that demonstrated monophasic flow from her external iliacs distally. The CT scan suggested stenosis versus occlusion of bilateral common iliac arteries. She is in need of a diagnostic angiogram with possible intervention to restore flow to the iliac arteries. She was given the risk, benefits, and alternative procedures and consented to the procedure. Angiographic Findings: The diagnostic aortogram reveals a heavily calcified aorta with 50% stenosis in the distal aorta just proximal to the bifurcation. The left lower extremity angiogram reveals heavily calcified and occluded left common iliac artery with reconstitution through collaterals from lumbar arteries in the distal common iliac artery. There is approximately 65 to 70% stenosis in the distal common iliac artery. The hypogastric artery is occluded. The external iliac artery is heavily diseased with 50 to 80% stenosis. There is a short segment heavily calcified lesion within the common femoral artery causing approximately 50% stenosis. The profunda artery is patent without significant flow-limiting stenosis. The SFA and popliteal artery appear to be calcified with 20 to 25% stenosis however there are no flow-limiting areas of stenosis. The patient has two-vessel runoff and the anterior tibial artery appears to have diffuse disease in the proximal segment with 30 to 50% stenosis however the remainder of the artery appears to be patent without significant flow-limiting stenosis. The tibial peroneal trunk appears to be patent without significant flow-limiting stenosis. The peroneal artery appears to be patent without significant flow-limiting stenosis and fills the occluded posterior tibial artery through collaterals at the ankle which then appears to flow into the foot. The right lower extremity angiogram demonstrates a heavily calcified and occluded right common iliac artery that reconstitutes through collaterals in the distal common iliac artery throughout lumbar. The distal common iliac artery has approximately 60% stenosis. The hypogastric artery is patent without significant flow-limiting stenosis. The external iliac artery is diffusely diseased with 50 to 60% stenosis. There is a high bifurcation of the SFA and profunda with a very short segment of common femoral artery however there appears to be no flow-limiting stenosis in the short segment of common femoral artery or the profunda artery. The SFA and popliteal artery are heavily calcified however there is no significant flow-limiting stenosis. The patient has three-vessel runoff. The anterior tibial artery appears to be patent throughout its course without significant flow-limiting stenosis. The tibioperoneal trunk appears to be patent without significant flow-limiting stenosis. The peroneal artery appears to be patent without significant flow- limiting stenosis. The posterior tibial artery appears to be diffusely disease with 50% stenosis throughout the proximal and mid segment and then became atre tic in the distal segment and eventually occluded. After intervention the distal aorta stenosis was reduced to less than 10%. The left common iliac artery stenosis was reduced to less than 10%. The left external iliac artery stenosis was reduced to approximately 15%. The right common iliac artery stenosis was reduced to less than 10%. The right external iliac artery stenosis was reduced to less than 10%. Description of Procedure: The patient was brought to the Pipe Production Worker and laid in supine position. After timeout was performed bilateral groins were prepped and draped in normal sterile fashion. Ultrasound was used to identify the right common femoral artery however it was difficult to determine the anatomy so I turned to the left groin. Ultrasound was used to identify the left common femoral artery and confirmed patency. Once patency was confirmed the overlying skin and soft tissue was anesthetized with lidocaine. An 11 blade was used to make a small stab incision and then a curved hemostat was used to bluntly dissect down to the anterior surface of the left common femoral artery under ultrasound guidance. A 21-gauge micropuncture needle was used with ultrasound guidance into the left common femoral artery and a 0.018 micropuncture wire was advanced into the artery. The needle was removed and the micropuncture sheath was placed by Seldinger technique. The dilator and wire were removed and a 0.035 J-wire was advanced into the artery. The micropuncture sheath was removed and exchanged for 5 Cambodian sheath by secondary technique. I performed a diagnostic arteriogram through the sheath revealing occlusion of the common iliac artery. I advanced a Navicross catheter and 0.018 Gladius Wire into the artery and attempted to traverse the occluded common iliac artery without success. I made attempts with various wires without success. I eventually used the back end of a 0.035 glide advantage wire and was able to advance the catheter and wire into the midportion of the occluded artery and then used a Gladius wire to traverse the remainder of the occluded artery and into the aorta which was confirmed by angiogram. I performed a diagnostic aortogram through the catheter with the previously described findings. I was also able to identify that the right common iliac artery was occluded and through reconstitution from the lumbar arteries see flow within the external iliac artery and identify the short common femoral artery as well as the high bifurcation of the SFA and profunda artery. This allowed me to better understand the anatomy that I was seen on the ultrasound. I then used the ultrasound to identify the short segment of the common femoral artery. I used lidocaine to anesthetize the overlying skin and soft tissue and then used an 11 blade to make a small stab incision. I used a curved hemostat with ultrasound guidance to bluntly dissect down to the anterior surface and then accessed the artery using a 21-gauge micropuncture needle. I advanced a 0.018 V18 wire into the artery and then placed a 6 Cambodian glide slender sheath into the artery by Seldinger technique after removing the needle. I performed a diagnostic angiogram which confirmed the areas of stenosis within the external iliac artery and confirmed the occlusion of the common iliac artery. I made multiple attempts with various catheters and wires to traverse the occluded common iliac artery without success. I advanced the 0.035 J-wire into the distal right common iliac artery and exchanged the 6 Cambodian sheath for a 7 Cambodian 23 cm sheath. I exchanged the left femoral sheath for a 7 Cambodian 23 cm sheath. At this point I systemically heparinized the patient with 5000 units of heparin IV. I exchanged my left wire for a 0.014 Spartacore Wire. I predilated the left common iliac artery with a 4 x 40 EverCross Balloon and then performed Lithotripsy Angioplasty of the left common iliac artery as well as the proximal external iliac artery using a 6 x 80 Shockwave Lithotripsy Balloon. This resulted in approximately 70% residual stenosis. I performed this in order to predilate for stent graft placement as well as to have a permanent tract and attempt to recannulate the right common iliac artery by going up and over the bifurcation. I advanced a Sos Omni catheter into the aorta, through the left femoral sheath and reformed it in the proximal aorta. I was then able to use the nose of the catheter and took this into the right common iliac artery. I then traversed the occluded right common iliac artery using the glide advantage catheter. I remove d the Sos Omni catheter and advanced the Navicross catheter over the wire and was able to advance the advantage wire into the 7 Cambodian sheath that was in the right external iliac artery. I then advanced a Kumpe catheter through the right common femoral artery and was able to advance this over the advantage wire, that was within the sheath. I advanced the advantage wire out of the Kumpe catheter so that the patient was now flossed over the bifurcation. I advanced the Kumpe catheter while withdrawing the Navicross catheter until both were now at the bifurcation. Once they were both centered over the bifurcation I pulled the advantage wire back and was able to flip both catheters into the aorta and advanced glide advantage wires through both catheters and advanced them up into the mid infrarenal aorta. I exchanged the right glide advantage wire for a 0.014 Spartacore Wire and performed Lithotripsy Angioplasty of the right common femoral artery using the 6 x 80 Shockwave Lithotripsy Balloon. This resulted in approximately 65 to 70% residual stenosis. I advanced the Kumpe catheter over the Spartacore wire and exchanged it for the glide advantage wire. I then advanced both sheaths into the distal aorta. I advanced a 8 x 59 Viabahn VBX Balloon Expandable Stent Grafts through each sheath respectively and into the distal aorta ensuring that I was above the level of stenosis within the distal aorta as well as distal to the reconstitution of flow within the occluded common iliac arteries. This sheaths were then withdrawn and care was taken to ensure that the stent grafts were at the same level. They were then simultaneously deployed with a result of less than 10% residual stenosis within the distal aorta, and less than 10% residual stenosis in the respective common iliac arteries. I then used the 7 x 80 IN.PACT Drug-Coated Balloon to perform angioplasty of the stenosis within the right proximal external iliac artery followed by angioplasty of the distal external iliac artery with a 6 x 80 IN.PACT Drug-Coated Balloon which resulted in less than 10% residual stenosis. I performed angioplasty of the stenosis within the left proximal external iliac artery with a 7 x 80 IN.PACT Drug-Coated Balloon followed by angioplasty of the distal external iliac artery with a 6 x 80 IN.PACT Drug-Coated Balloon which resulted in approximately 15% residual stenosis. I performed hand injections through each sheath to perform the bilateral lower extremity runoff in stages, with the previously described findings. Once I completed the bilateral lower extremity angiograms I exchanged my glide advantage wires for J wires and closed each femoral arteriotomy with Perclose Pro Style Closure Devices after removing the sheath. Sterile dressings were then applied to the groin entry sites and the patient was transported to the recovery area in stable condition.
[2021-10-02] MEDS ORDERED: oxyCODONE /ACETAMINOPHEN 5-325MG TAB PO PRN (16:30)
[2021-10-02 17:23] VITALS: BP 132/73
== END 2021-10-02 09:34 | disposition home or self-care (01) ==
LOC: CATHLABREC 09:33
PROVIDERS: ATTEND Surgery Vascular Surgery
DX: I70.213 Atherosclerosis of native arteries of extremities with intermittent claudication, bilateral legs (principal); I10 Essential (primary) hypertension; M19.90 Unspecified osteoarthritis, unspecified site; F32.9 Major depressive disorder, single episode, unspecified; Z90.710 Acquired absence of both cervix and uterus; Z98.890 Other specified postprocedural states; Z79.899 Other long term (current) drug therapy; E78.5 Hyperlipidemia, unspecified; Z79.82 Long term (current) use of aspirin; Z88.8 Allergy status to other drugs, medicaments and biological substances
CPT/HCPCS: 36415; 37221; 37222; 75625; 75716; 76937; 80048; 85027; 85610; 85730; 99156; 99157; C1725; C1760; C1769; C1874; C1887; C1894; C2623; J1200; J1644; J2250; J2405; J3010; J3490; J7040; Q9967